=== PATIENT | female | born 1975 | race Caucasian/White ===

== ENCOUNTER 2022-07-17 18:18 | Emergency (ER) | payer MEDICAID, OTHER ==
[~2022-07-17] VITALS: Ht 144.8 cm; Wt 95.0 kg
[2022-07-17] MEDS ORDERED: METHYLPREDNISOLONE SOD SUCC 125 MG/2 ML VIAL IV STA (18:46)
[2022-07-17] MEDS ORDERED: DIPHENHYDRAMINE 50MG/ML VIAL IV ONE (19:00)
[2022-07-17] MEDS ORDERED: FAMOTIDINE 20MG/2ML VIAL IV ONE (19:00)
[2022-07-17] MEDS ORDERED: SODIUM CHLORIDE 0.9% 1,000 ML IV ONE (19:00)
[2022-07-17] MEDS ORDERED: EPINEPHRINE 1:1000 1 MG/ML AMP SUBCUT ONE (19:00)
[2022-07-17 19:31] LABS: CHLORIDE 105 mEq/L (98-107)
[2022-07-17 19:34] LABS: BASOPHILS % 0.4 % (0.0-2.0); EOSINOPHILS % 0.8 % (0.0-5.0); HEMATOCRIT. 45.7 % (36.0-48.0); HEMOGLOBIN. 15.6 g/dL (12.0-16.0); LYMPHOCYTES % 39.8 % (20.0-50.0); MEAN CORPUSCULAR HEMOGLOBIN 32.3 pg (28.0-32.0); MEAN CORPUSCULAR VOLUME 94.6 fL (81.0-99.0); MONOCYTES % 3.3 % (2.0-8.0); NEUTROPHILS % 55.7 % (40.0-76.0); RED BLOOD CELL COUNT 4.83 mill/uL (4.2-5.4); RED CELL DISTRIBUTION WIDTH 13.1 % (11.6-14.6)
[2022-07-17 20:21] LABS: HCG SCREEN NEGATIVE
[2022-07-17 23:13] LABS: MEAN PLATELET VOLUME 10.8 fl (7.4-10.4); PLATELET 276 x1000/uL (130-400)
[2022-07-18 02:06] VITALS: BP 140/72
== END 2022-07-18 02:24 | disposition short-term general hospital (02) ==
LOC: ER 18:18 → CMPBEDREQ 07-19 00:07
DX: T78.40XA Allergy, unspecified, initial encounter (principal); X58.XXXA Exposure to other specified factors, initial encounter; Z20.822 Contact with and (suspected) exposure to COVID-19
CPT/HCPCS: 36415; 71045; 80053; 81025; 84703; 85025; 87426; 93005; 96361; 96372; 96374; 96375; 99285; C9803; J1200; J2930; J3490; J7030